=== PATIENT | male | born 1985 | race Caucasian/White ===

== ENCOUNTER 2020-01-17 20:33 | Inpatient (IN) ==
[2020-01-17] MEDS ORDERED: ENOXAPARIN 120 MG/0.8 ML SYRINGE SUBCUT ONE (20:45)
[2020-01-17] MEDS ORDERED: MORPHINE 4 MG/1 ML VIAL ONE (20:46)
[2020-01-17] MEDS ORDERED: ONDANSETRON 4 MG/2 ML VIAL ONE ×2 (20:46→21:38)
[2020-01-17] MEDS ORDERED: HEPARIN/NACL 0.9% 2 UNITS/ML 1,500 ML IV ONE (20:47)
[2020-01-17] MEDS ORDERED: HEPARIN 5,000 UNIT/1 ML VIAL ONE (20:47)
[2020-01-17] MEDS ORDERED: LIDOCAINE 1% 20 ML VIAL ONE (20:47)
[2020-01-17] MEDS ORDERED: NITROGLYCERIN DRIP 0 MG/0 ML BOTTLE IV ONE (20:47)
[2020-01-17] MEDS ORDERED: ASPIRIN 325 MG TABLET PO STA (20:58)
[2020-01-17] MEDS ORDERED: ENOXAPARIN 30 MG/0.3 ML SYRINGE IV STA (20:58)
[2020-01-17] MEDS ORDERED: NITROGLYCERIN 2% OINT 1 INCH/GM PACK TOP STA (20:58)
[2020-01-17] MEDS ORDERED: MORPHINE 4 MG/1 ML VIAL IV STA (20:58)
[2020-01-17] MEDS ORDERED: ENOXAPARIN 100 MG/ML SYRINGE SUBCUT STA (20:58)
[2020-01-17] MEDS ORDERED: ONDANSETRON 4 MG/2 ML VIAL IV STA (20:58)
[2020-01-17] MEDS ORDERED: MIDAZOLAM 2 MG/2 ML VIAL ONE (21:02)
[2020-01-17] MEDS ORDERED: fentaNYL 100 MCG/2 ML VIAL ONE (21:02)
[2020-01-17 21:08] LABS: Basophils # 0.1 10*3/uL (0.0-0.2); Basophils % 0.4 % (0.0-0.8); Eosinophils # 0.1 10*3/uL (0.0-0.87); Eosinophils % 0.6 % (0.00-10.9); Hematocrit 40.9 VOL% (42.0-52.0); Hemoglobin 13.3 GM/DL (14.0-18.0); Immature Granulocytes Absolute 0.12 #; Lymphocytes # 2.2 10*3/uL (1.4-4.0); Lymphocytes % 18.2 % (21.2-54.2); Mean Corpuscular HGB Conc 32.5 GM/DL (32-36); Mean Corpuscular Volume 96.5 FL (87-102); Mean Platelet Volume 8.1 FL (9.6-12.0); Monocytes % 8.5 % (1.7-12.7); NRBC # 0.03 10*3/uL; Neutrophils % 71.3 % (38.7-73.9); Platelet Count 334 T/CUMM (130-400); Red Blood Count 4.24 MC/CUMM (3.8-5.5); Red Cell Distribution Width 13.6 % (9.3-17.3); White Blood Count 12.1 T/CUMM (4-12)
[2020-01-17 21:16] LABS: PT Patient Result 10.6 SECS (9.8-11.9)
[2020-01-17] MEDS ORDERED: CLOPIDOGREL 300 MG TABLET ONE (21:21)
[2020-01-17] MEDS ORDERED: EPTIFIBATIDE 20,000 MCG/10 ML VIAL ONE (21:28)
[2020-01-17] MEDS ORDERED: NITROPRUSSIDE 50 MG/2 ML VIAL ONE (21:32)
[2020-01-17 21:36] LABS: Alanine Aminotransferase 37 U/L (16-61); Albumin 4.1 G/DL (3.4-5.0); Alkaline Phosphatase 72 U/L (45-117); Aspartate Amino Transferase 28 U/L (0-37); Bilirubin,Total < 0.39 MG/DL (0.2-1.0); Blood Urea Nitrogen 21 MG/DL (7-18); Calcium 9.1 MG/DL (8.5-10.1); Estimated Glom Filtration Rate 55 ML/MIN; Glucose 134 MG/DL (74-106); Total Protein 7.4 G/DL (6.4-8.3)
[2020-01-17] MEDS ORDERED: FAMOTIDINE 20 MG/2 ML VIAL IV ONE (21:49)
[2020-01-17] MEDS ORDERED: EPTIFIBATIDE 75 MG/100 ML BOTTLE IV ONE (22:26)
[2020-01-17] MEDS ORDERED: EPTIFIBATIDE 75 MG/100 ML BOTTLE IV SCH (22:29)
[2020-01-17] MEDS ORDERED: MORPHINE 10 MG/1 ML VIAL ONE (22:30)
[2020-01-17] MEDS ORDERED: SODIUM CHLORIDE 0.9% 1,000 ML IV SCH (23:30)
[2020-01-18 02:48] LABS: Apearance,Urine CLEAR (Clear); Bacteria,Urine Occasional /HPF (Few); Bilirubin,Urine Negative (Negative); Blood, Urine Negative (Negative); Glucose,Urine (UA) Negative (Negative); Ketones,Urine Negative (Negative); Mucus,Urine Occasional /LPF (Occasional); Nitrite,Urine Negative (Negative); Protein,Urine Negative; RBC,Urine 3 /HPF (0-4); Urine Color Yellow (Yellow); Urine Specific Gravity > 1.060 (1.001-1.035); Urine Urobilinogen < 2.0 EU/DL (0.2-1.0); WBC,Urine <1 /HPF (0-6)
[2020-01-18] MEDS ORDERED: HYDROmorphone 2 MG/1 ML VIAL IV ONE (04:59)
[2020-01-18 05:00] LABS: Barbiturates Screen,Urine Negative (Negative); Benzodiazepines Screen,Urine Positive (Negative); Cannabinoid Screen,Urine Negative (Negative); Opiate Screen,Urine Positive (Negative); Phencyclidine Screen,Urine Negative (Negative)
[2020-01-18] MEDS: TICAGRELOR 90 MG TABLET PO SCH ×2 (08:24→21:45)
[2020-01-18] MEDS ORDERED: ATORVASTATIN 40 MG TABLET PO SCH ×2 (09:00→21:00)
[2020-01-18] MEDS ORDERED: ACETAMINOPHEN 325 MG TABLET PO PRN (09:37)
[2020-01-18] MEDS ORDERED: DOCUSATE SODIUM 100 MG CAPSULE PO PRN (09:37)
[2020-01-18] MEDS ORDERED: MAGNESIUM SULF RIDER 4 GM in PREMIX 1 EACH IV PRN (09:37)
[2020-01-18] MEDS ORDERED: ONDANSETRON 4 MG/2 ML VIAL IV PRN (09:37)
[2020-01-18] MEDS ORDERED: MAGNESIUM SULF RIDER 2 GM in PREMIX 1 EACH IV PRN (09:37)
[2020-01-18] MEDS ORDERED: DOLUTEGRAVIR LAMIVUDINE PO SCH (09:43)
[2020-01-18] MEDS ORDERED: ASPIRIN EC 81 MG TABLET PO SCH (10:00)
[2020-01-18] MEDS: PANTOPRAZOLE 40 MG TABLET PO SCH (10:50)
[2020-01-18] MEDS: METOPROLOL TARTRATE 25 MG TABLET PO SCH ×2 (10:50→21:45)
[2020-01-18] MEDS: NITROGLYCERIN SL 0.4 MG TABLET SL PRN ×3 (11:49→12:09)
[2020-01-18] MEDS: SERTRALINE 100 MG TABLET PO SCH (12:10)
[2020-01-18] MEDS ORDERED: MAGNESIUM HYDROXIDE SUSP 30 ML UDCUP PO PRN (14:18)
[2020-01-18] MEDS ORDERED: diphenhydrAMINE CAP 25 MG CAPSULE PO PRN (16:49)
[2020-01-19] MEDS ORDERED: ACETAMINOPHEN 500 MG TABLET PO ONE (03:43)
[2020-01-19 06:08] LABS: Basophils % 0.5 % (0.0-0.8); Eosinophils # 0.1 10*3/uL (0.0-0.87); Eosinophils % 0.9 % (0.00-10.9); Hematocrit 38.1 VOL% (42.0-52.0); Hemoglobin 12.2 GM/DL (14.0-18.0); Immature Granulocytes % 0.4 %; Immature Granulocytes Absolute 0.03 #; Lymphocytes % 25.4 % (21.2-54.2); Mean Platelet Volume 8.3 FL (9.6-12.0); Monocytes % 10.1 % (1.7-12.7); Neutrophils % 62.7 % (38.7-73.9); Red Blood Count 3.97 MC/CUMM (3.8-5.5); Red Cell Distribution Width 13.8 % (9.3-17.3)
[2020-01-19 06:09] LABS: Platelet Count 241 T/CUMM (130-400)
[2020-01-19 06:20] LABS: Calcium 8.9 MG/DL (8.5-10.1); Osmolality,Calculated 272.8 MOS/KG (273-304); Risk Ratio 4.76; VLDL CHOLESTEROL 45.2 MG/DL
[2020-01-19] MEDS ORDERED: ASPIRIN EC 81 MG TABLET PO SCH (09:00)
[2020-01-19] MEDS ORDERED: DOLUTEGRAVIR LAMIVUDINE PO SCH (09:00)
[2020-01-19] MEDS: TICAGRELOR 90 MG TABLET PO SCH (09:08)
[2020-01-19] MEDS: METOPROLOL TARTRATE 25 MG TABLET PO SCH (09:10)
[2020-01-19] MEDS: PANTOPRAZOLE 40 MG TABLET PO SCH (09:10)
[2020-01-19] MEDS: SERTRALINE 100 MG TABLET PO SCH (09:10)
[2020-01-19 09:19] VITALS: BP 104/72
== END 2020-01-19 12:25 | disposition home or self-care (01) | DRG 247 ==
LOC: N.ED 20:33 → N.CLINP 20:53 → N.EDINP 21:52 → N.CLINP 23:05 → N.TELES 01-18 14:11
PROVIDERS: ADMIT Internal Medicine Cardiovascular Disease; ATTEND Internal Medicine Cardiovascular Disease
PROC: CLCCHCL (ICD-10-PCS; 2020-01-17 21:15)

== ENCOUNTER 2020-05-18 17:58 | Observation (INO) ==
[2020-05-18 19:06] LABS: Troponin I 0.039 NG/ML (0.00-0.045)
[2020-05-18 23:28] LABS: Basophils % 0.5 % (0.0-0.8); Eosinophils # 0.1 10*3/uL (0.0-0.87); Eosinophils % 0.7 % (0.00-10.9); Hematocrit 41.6 VOL% (42.0-52.0); Hemoglobin 13.9 GM/DL (14.0-18.0); Immature Granulocytes % 0.4 %; Immature Granulocytes Absolute 0.03 #; Lymphocytes % 23.3 % (21.2-54.2); Mean Corpuscular HGB Conc 33.4 GM/DL (32-36); Mean Corpuscular Volume 87.2 FL (87-102); Mean Platelet Volume 8.4 FL (9.6-12.0); Monocytes % 8.5 % (1.7-12.7); Neutrophils % 66.6 % (38.7-73.9); Platelet Count 182 T/CUMM (130-400); Red Blood Count 4.77 MC/CUMM (3.8-5.5); Red Cell Distribution Width 15.8 % (9.3-17.3); White Blood Count 8.4 T/CUMM (4-12)
[2020-05-18] MEDS ORDERED: PANTOPRAZOLE 40 MG VIAL IV ONE (23:40)
[2020-05-18] MEDS ORDERED: ALUM/MAG/SIMETH/LIDO VISC 1:1 30 ML BOTTLE PO ONE (23:40)
[2020-05-18 23:45] LABS: Alanine Aminotransferase 35 U/L (16-61); Albumin 3.9 G/DL (3.4-5.0); Alkaline Phosphatase 102 U/L (45-117); Amylase 77 U/L (25-115); Aspartate Amino Transferase 27 U/L (0-37); Blood Urea Nitrogen 24 MG/DL (7-18); Calcium 9.1 MG/DL (8.5-10.1); Estimated Glom Filtration Rate 69 ML/MIN; Glucose 97 MG/DL (74-106); Osmolality,Calculated 280.5 MOS/KG (273-304); Total Protein 7.6 G/DL (6.4-8.3)
[2020-05-18 23:47] LABS: Troponin I 0.046 NG/ML (0.00-0.045)
[2020-05-18 23:49] LABS: PT Patient Result 10.3 SECS (9.8-11.9); Partial Thromboplastin Time 26.3 SECS (23.9-33.8)
[2020-05-19] MEDS ORDERED: ACETAMINOPHEN 325 MG TABLET PO PRN (01:05)
[2020-05-19] MEDS ORDERED: diphenhydrAMINE CAP 25 MG CAPSULE PO PRN (01:05)
[2020-05-19] MEDS ORDERED: guaiFENesin/DM ER 600-30 MG TABLET PO PRN (01:05)
[2020-05-19] MEDS ORDERED: ALBUTEROL 2.5 MG/3 ML NEB RESP TX PRN (01:05)
[2020-05-19] MEDS ORDERED: GLUCAGON 1 MG VIAL IM PRN (01:05)
[2020-05-19] MEDS ORDERED: DEXTROSE 50% 25 GM/50 ML VIAL IV PRN (01:05)
[2020-05-19] MEDS ORDERED: NICOTINE 21 MG/24 HR PATCH TRANSDERM PRN (01:05)
[2020-05-19] MEDS ORDERED: MORPHINE 4 MG/1 ML VIAL IV PRN (01:05)
[2020-05-19] MEDS ORDERED: ZALEPLON 5 MG CAPSULE PO PRN (01:05)
[2020-05-19] MEDS ORDERED: ONDANSETRON 4 MG/2 ML VIAL IV PRN (01:05)
[2020-05-19] MEDS ORDERED: hydrALAZINE 20 MG/1 ML VIAL IV PRN (01:05)
[2020-05-19] MEDS ORDERED: NITROGLYCERIN SL 0.4 MG TABLET SL PRN (01:08)
[2020-05-19] MEDS ORDERED: PIPERACILLIN/TAZOBACTAM 3,375 MG in SODIUM CHLORIDE 0.9% 100 ML IV SCH (01:30)
[2020-05-19] MEDS ORDERED: ENOXAPARIN 120 MG/0.8 ML SYRINGE SUBCUT ONE (01:30)
[2020-05-19] MEDS ORDERED: ENOXAPARIN 100 MG/ML SYRINGE SUBCUT ONE (02:43)
[2020-05-19] MEDS ORDERED: ENOXAPARIN 30 MG/0.3 ML SYRINGE ONE (02:43)
[2020-05-19] MEDS ORDERED: VANCOMYCIN INJ 1,750 MG in SODIUM CHLORIDE 0.9% 500 ML IV SCH (03:00)
[2020-05-19 03:18] LABS: Apearance,Urine Slightly Hazy (Clear); Barbiturates Screen,Urine Negative (Negative); Benzodiazepines Screen,Urine Negative (Negative); Bilirubin,Urine Negative (Negative); Blood, Urine Negative (Negative); Cannabinoid Screen,Urine Negative (Negative); Glucose,Urine (UA) Negative (Negative); Ketones,Urine Negative (Negative); Nitrite,Urine Negative (Negative); Opiate Screen,Urine Positive (Negative); Phencyclidine Screen,Urine Negative (Negative); Protein,Urine Negative; RBC,Urine 1 /HPF (0-4); Urine Color Yellow (Yellow); Urine Specific Gravity 1.025 (1.001-1.035); Urine Urobilinogen < 2.0 EU/DL (0.2-1.0); WBC,Urine <1 /HPF (0-6)
[2020-05-19 06:22] LABS: Basophils % 0.3 % (0.0-0.8); Eosinophils # 0.1 10*3/uL (0.0-0.87); Eosinophils % 1.5 % (0.00-10.9); Hemoglobin 13.3 GM/DL (14.0-18.0); Immature Granulocytes % 0.3 %; Immature Granulocytes Absolute 0.02 #; Lymphocytes # 2.2 10*3/uL (1.4-4.0); Lymphocytes % 36.7 % (21.2-54.2); Mean Corpuscular HGB Conc 34.1 GM/DL (32-36); Mean Corpuscular Volume 86.5 FL (87-102); Mean Platelet Volume 8.2 FL (9.6-12.0); Neutrophils % 50.2 % (38.7-73.9); Platelet Count 164 T/CUMM (130-400); Red Blood Count 4.51 MC/CUMM (3.8-5.5); Red Cell Distribution Width 15.9 % (9.3-17.3)
[2020-05-19 06:32] LABS: Calcium 8.7 MG/DL (8.5-10.1); Osmolality,Calculated 280.4 MOS/KG (273-304)
[2020-05-19] MEDS ORDERED: BICILLIN LA 1,200,000 UNIT/2 ML SYRINGE IM STA (07:36)
[2020-05-19 07:54] LABS: Risk Ratio 3.41; VLDL CHOLESTEROL 33.2 MG/DL
[2020-05-19] MEDS ORDERED: PANTOPRAZOLE 40 MG VIAL IV ONE (08:40)
[2020-05-19] MEDS ORDERED: KETOROLAC 60 MG/2 ML VIAL IM ONE (08:41)
[2020-05-19] MEDS ORDERED: KETOROLAC 30 MG/1 ML VIAL IV ONE (08:42)
[2020-05-19] MEDS ORDERED: TICAGRELOR 90 MG TABLET PO SCH (09:00)
[2020-05-19] MEDS ORDERED: METOPROLOL TARTRATE 25 MG TABLET PO SCH (09:00)
[2020-05-19] MEDS ORDERED: PANTOPRAZOLE 40 MG TABLET PO SCH (09:00)
[2020-05-19] MEDS: DOCUSATE SODIUM 100 MG CAPSULE PO SCH ×2 (10:05→20:59)
[2020-05-19] MEDS: METOPROLOL TARTRATE 25 MG TABLET PO SCH (10:06)
[2020-05-19] MEDS: LACTOBACILLUS ACIDOPHILUS/BULGARICUS CAPLET PO SCH (10:06)
[2020-05-19] MEDS: SERTRALINE 100 MG TABLET PO SCH (10:06)
[2020-05-19] MEDS: MULTIVITAMIN (CENTRUM) TABLET PO SCH (10:06)
[2020-05-19] MEDS: DOLUTEGRAVIR LAMIVUDINE PO SCH (10:09)
[2020-05-19] MEDS: ASPIRIN EC 81 MG TABLET PO SCH (10:09)
[2020-05-19] MEDS: LOSARTAN 25 MG TABLET PO SCH (10:09)
[2020-05-19] MEDS: CLOPIDOGREL 75 MG TABLET PO SCH (10:09)
[2020-05-19] MEDS ORDERED: ATORVASTATIN 40 MG TABLET PO SCH ×2 (21:00)
[2020-05-20 05:56] LABS: Troponin I 0.017 NG/ML (0.00-0.045)
[2020-05-20 07:49] VITALS: BP 101/62
[2020-05-20] MEDS: LACTOBACILLUS ACIDOPHILUS/BULGARICUS CAPLET PO SCH (09:46)
[2020-05-20] MEDS: LOSARTAN 25 MG TABLET PO SCH (09:46)
[2020-05-20] MEDS: ASPIRIN EC 81 MG TABLET PO SCH (09:46)
[2020-05-20] MEDS: DOLUTEGRAVIR LAMIVUDINE PO SCH (09:46)
[2020-05-20] MEDS: METOPROLOL TARTRATE 25 MG TABLET PO SCH (09:47)
[2020-05-20] MEDS: SERTRALINE 100 MG TABLET PO SCH (09:47)
[2020-05-20] MEDS: MULTIVITAMIN (CENTRUM) TABLET PO SCH (09:47)
[2020-05-20] MEDS: DOCUSATE SODIUM 100 MG CAPSULE PO SCH (09:47)
[2020-05-20] MEDS: CLOPIDOGREL 75 MG TABLET PO SCH (09:47)
== END 2020-05-20 11:47 | disposition home or self-care (01) ==
LOC: EDBD → EDUNIT# → N.TELEN 17:58 → N.ED 17:58 → N.EDINP 17:58 → SUATTDRO 05-19 01:05 → N.TELEN 05-19 02:54
PROVIDERS: ADMIT Internal Medicine; ATTEND Internal Medicine